=== PATIENT | male | born 1965 | race Caucasian/White ===

== ENCOUNTER → 2021-12-09 | Day surgery (SDC) | payer OTHER ==
[~2021-12-09] MED LIST: ATORVASTATIN CA40 MG PO; CETIRIZINE HCL10 MG PO; CYCLOBENZAPRINE5 MG PO; ESCITALOPRAM OX20 MG PO; GABAPENTIN800 MG PO; HYDROCODONE-AC1 EAC1 PO; LOPRESSOR 50 MG50 MG PO; OMEPRAZOLE20 MG PO; PROVENTIL HFA6.7 GM INH
== END | disposition home or self-care (01) ==
LOC: OR 07:00
DX: M47.26 Other spondylosis with radiculopathy, lumbar region (principal); M46.1 Sacroiliitis, not elsewhere classified; J44.9 Chronic obstructive pulmonary disease, unspecified; I10 Essential (primary) hypertension; E78.00 Pure hypercholesterolemia, unspecified; K21.9 Gastro-esophageal reflux disease without esophagitis; F17.220 Nicotine dependence, chewing tobacco, uncomplicated; Z79.899 Other long term (current) drug therapy
CPT/HCPCS: 72202; 76000; 82962; J1040; Q9967